=== PATIENT | male | born 1965 | race Two or more races ===

== ENCOUNTER 2021-05-30 03:48 | Emergency (ER) | payer MEDICAID ==
[~2021-05-30] VITALS: Ht 177.8 cm; Wt 83.9 kg
[~2021-05-30 03:48] MED LIST: PERCOT; SERT25TA84
[2021-05-30 05:17] VITALS: BP 117/78
== END 2021-05-30 05:26 | disposition home or self-care (01) ==
LOC: ER 03:48
DX: M17.12 Unilateral primary osteoarthritis, left knee (principal); M25.462 Effusion, left knee; Z79.899 Other long term (current) drug therapy
CPT/HCPCS: 73562

== ENCOUNTER 2024-01-20 04:01 | Emergency (ER) | payer MEDICAID ==
[~2024-01-20] VITALS: Ht 177.8 cm; Wt 80.0 kg
[2024-01-20 04:05] VITALS: BP 110/71; PULSE 99; RESP 18; O2SAT 98
[2024-01-20] MEDS: ONDANSETRON HCL 4 MG/2 ML VIAL IM ONE (04:56)
[2024-01-20] MEDS ORDERED: SODIUM CHLORIDE 0.9% 1,000 ML IV ONE (05:45)
== END 2024-01-20 05:33 | disposition left against medical advice (07) ==
LOC: ER 04:01 → EDBD 04:01 → ER 05:25
DX: T40.5X1A Poisoning by cocaine, accidental (unintentional), initial encounter (principal); Z53.21 Procedure and treatment not carried out due to patient leaving prior to being seen by health care provider; Y92.9 Unspecified place or not applicable
CPT/HCPCS: 99281; J2405